=== PATIENT | male | born 2000 | race Asian ===

== ENCOUNTER 2022-04-02 14:00 | Outpatient (CLI) | payer BC | END 2022-04-02 14:01 | disposition home or self-care (01) | LOC: CSHLAB 14:00 | PROVIDERS: ATTEND Internal Medicine Gastroenterology | DX: Z20.822 Contact with and (suspected) exposure to COVID-19 (principal) | CPT/HCPCS: U0003; U0005 ==

== ENCOUNTER 2022-04-07 07:39 | Day surgery (SDC) | payer BC ==
[2022-04-02 11:43] VITALS: BMI 20.7
[~2022-04-07 07:39] MED LIST: HYDROmorphone 0.5 MG/0.5 ML SYRINGE ONE
[2022-04-07] MEDS ORDERED: Lidocaine 1% MPF 2 ML VIAL ONE (08:02)
[2022-04-07] MEDS ORDERED: Lidocaine 1% PF 5 ML VIAL ONE (09:06)
[2022-04-07] MEDS ORDERED: PROPOFOL 40 ML ONE (09:06)
[2022-04-07] MEDS ORDERED: HYDROmorphone 0.5 MG/0.5 ML SYRINGE ONE (09:15)
== END 2022-04-07 10:05 | disposition home or self-care (01) ==
LOC: CSHSDC 07:39
PROVIDERS: ATTEND Internal Medicine Gastroenterology
PROC: 0DB78ZX Excision of Stomach, Pylorus, Via Natural or Artificial Opening Endoscopic, Diagnostic (ICD-10-PCS; principal; 2022-04-07)
DX: K29.50 Unspecified chronic gastritis without bleeding (principal); K29.80 Duodenitis without bleeding; K26.9 Duodenal ulcer, unspecified as acute or chronic, without hemorrhage or perforation
CPT/HCPCS: 88305; 88312; J1170; J2704